=== PATIENT | female | born 2000 ===

== ENCOUNTER 2020-04-13 02:56 | Emergency (ER) | payer MEDICAID ==
[2020-04-13 08:21] LABS: Basophils % (Auto) 0.2 % (0.0-1.8); Hematocrit 43.2 % (30.3-42.9); Lymphocytes # (Auto) 1.4 K/mm3 (1.2-5.4); Mean Corpuscular HGB Conc 35 % (30-34); Mean Corpuscular Volume 84 fl (79-97); Monocytes # (Auto) 0.7 K/mm3 (0.0-0.8); Monocytes % (Auto) 4.9 % (0.0-7.3); Platelet Count 350 K/mm3 (140-440); Red Blood Count 5.16 M/mm3 (3.65-5.03); Red Cell Distribution Width 13.9 % (13.2-15.2)
[2020-04-13] MEDS ORDERED: SODIUM CHLORIDE 0.9% 1000 ML 1,000 ML IV ONE ×2 (08:31)
[2020-04-13] MEDS ORDERED: ONDANSETRON 4 MG/2 ML INJ IV ONE (08:31)
[2020-04-13] MEDS ORDERED: FAMOTIDINE 20 MG/2 ML INJ IV ONE (08:31)
[2020-04-13 09:02] LABS: Alanine Aminotransferase 38 units/L (7-56); Albumin 4.5 g/dL (3.9-5); Blood Urea Nitrogen 9 mg/dL (7-17); Hemolysis Index 0
[2020-04-13 09:19] LABS: BUN/Creatinine Ratio 18
[2020-04-13 11:54] LABS: Bacteria,Urine 1+ /HPF (Negative); Bilirubin,Urine SM (Negative); Blood,Urine NEG (Negative); Color,Urine Amber (Yellow); Mucus,Urine 3+ /HPF
[2020-04-13 11:56] LABS: Protein,Urine >500 mg/dL (Negative)
[2020-04-13 12:02] LABS: Ictotest,Urine Positive (Negative)
--- NOTE | 2020-04-13 12:33 | Emergency Department Report ---
ED Female HPI - General Chief complaint: Nausea/Vomiting/Diarrhea Stated complaint: VOMITING BLOOD Time Seen by Provider: 04/13/20 08:17 Source: patient, EMS Mode of arrival: Ambulatory Limitations: No Limitations - History of Present Illness Initial comments: cc: VOMITING HPI: This is a 19 yo female who is currently 11 weeks 3 days who presents with poor appetite and vomiting. She has had vomiting for 3 weeks. She now has small blood clots in her emesis. Poor appetite for one month. Patient just recently discovered that she is . She was evaluated a a local health clinic. While sitting in waiting room, she developed stomach discomfort. Odd dull generalized pain. No vaginal bleeding or discharge. CRISTAL 10/30/20 Complaint: other (abdominal pain, vomiting) -: hour(s) (several hours abdominal pain) Location: other (diffuse) Severity: mild Quality: dull Consistency: now resolved Worsens with: none Are you Now?: Yes - Related Data : 2 Para: 1 Previous Rx's Medication Instructions Recorded Last Taken Type Promethazine [Phenergan SUPPOS] 25 mg SC Q6HR PRN #20 supp.rect 04/13/20 Unknown Rx Promethazine [Phenergan] 25 mg PO Q6HR PRN #20 tab 04/13/20 Unknown Rx Allergies Allergy/AdvReac Type Severity Reaction Status Date / Time No Known Allergies Allergy Unverified 04/13/20 05:19 ED Review of Systems ROS: Stated complaint: VOMITING BLOOD Other details as noted in HPI Comment: All other systems reviewed and negative Constitutional: denies: fever, malaise Respiratory: denies: cough, shortness of breath Gastrointestinal: abdominal pain, hematemesis. denies: nausea, vomiting ED Past Medical Hx - Past Medical History Previous Medical History?: No - Surgical History Past Surgical History?: No - Social History Smoking Status: Never Smoker Substance Use Type: None - Medications Home Medications: Home Medications Medication Instructions Recorded Confirmed Last Taken Type Promethazine [Phenergan SUPPOS] 25 mg SC Q6HR PRN #20 supp.rect 04/13/20 Unknown Rx Promethazine [Phenergan] 25 mg PO Q6HR PRN #20 tab 04/13/20 Unknown Rx ED Physical Exam - General Limitations: No Limitations General appearance: alert, in no apparent distress - Head Head exam: Present: atraumatic, normocephalic - Eye Eye exam: Present: normal appearance - ENT ENT exam: Present: mucous membranes moist - Neck Neck exam: Present: normal inspection, full ROM - Respiratory Respiratory exam: Present: normal lung sounds bilaterally. Absent: respiratory distress, wheezes, rales, rhonchi, stridor - Cardiovascular Cardiovascular Exam: Present: regular rate, normal rhythm, normal heart sounds. Absent: systolic murmur, diastolic murmur, rubs, gallop - GI/Abdominal GI/Abdominal exam: Present: soft, normal bowel sounds. Absent: distended, tend erness, guarding, rebound - Extremities Exam Extremities exam: Present: normal inspection - Neurological Exam Neurological exam: Present: alert, oriented X3, normal gait - Psychiatric Psychiatric exam: Present: normal affect, normal mood - Skin Skin exam: Present: warm, dry, intact, normal color. Absent: rash ED Course Vital Signs 04/13/20 04/13/20 04/13/20 04:03 07:34 12:41 Temperature 98.3 F 97.6 F Pulse Rate 111 H 115 H 71 Respiratory 18 16 16 Rate Blood Pressure 130/84 Blood Pressure 125/77 118/64 [Right] O2 Sat by Pulse 97 98 100 Oximetry ED Medical Decision Making - Lab Data Result diagrams: 04/13/20 07:40 04/13/20 07:40 Laboratory Results - last 24 hr 04/13/20 04/13/20 04/13/20 07:40 07:40 07:40 WBC 13.7 H RBC 5.16 H Hgb 15.0 H Hct 43.2 H MCV 84 MCH 29 MCHC 35 H RDW 13.9 Plt Count 350 Lymph % (Auto) 10.0 L [place] % (Auto) 4.9 Eos % (Auto) 0.0 Baso % (Auto) 0.2 Lymph # (Auto) 1.4 [place] # (Auto) 0.7 Eos # (Auto) 0.0 Baso # (Auto) 0.0 Seg Neutrophils % 84.9 H Seg Neutrophils # 11.6 H Sodium 137 Potassium 3.0 L Chloride 99.2 Carbon Dioxide 22 Anion Gap 19 BUN 9 Creatinine 0.5 L Estimated GFR > 60 BUN/Creatinine Ratio 18 Glucose 127 H Calcium 10.0 Total Bilirubin 0.60 AST 41 H ALT 38 Alkaline Phosphatase 135 H Total Protein 8.7 H Albumin 4.5 Albumin/Globulin Ratio 1.1 HCG, Qual Positive Urine Color Urine Turbidity Urine pH Ur Specific [place] Urine Protein Urine Glucose (UA) Urine Ketones Urine Blood Urine Nitrite Urine Bilirubin Urine Ictotest Urine Urobilinogen Ur Leukocyte Esterase Urine WBC (Auto) Urine RBC (Auto) U Epithel Cells (Auto) Urine Bacteria (Auto) Urine Mucus 04/13/20 11:35 WBC RBC Hgb Hct MCV MCH MCHC RDW Plt Count Lymph % (Auto) [place] % (Auto) Eos % (Auto) Baso % (Auto) Lymph # (Auto) [place] # (Auto) Eos # (Auto) Baso # (Auto) Seg Neutrophils % Seg Neutrophils # Sodium Potassium Chloride Carbon Dioxide Anion Gap BUN Creatinine Estimated GFR BUN/Creatinine Ratio Glucose Calcium Total Bilirubin AST ALT Alkaline Phosphatase Total Protein Albumin Albumin/Globulin Ratio HCG, Qual Urine Color [place] Urine Turbidity Clear Urine pH 6.0 Ur Specific [place] 1.024 Urine Protein >500 Urine Glucose (UA) Neg Urine Ketones 80 Urine Blood Neg Urine Nitrite Neg Urine Bilirubin Sm Urine Ictotest Positive Urine Urobilinogen 4.0 Ur Leukocyte Esterase Mod Urine WBC (Auto) 22.0 H Urine RBC (Auto) 5.0 U Epithel Cells (Auto) 4.0 Urine Bacteria (Auto) 1+ Urine Mucus 3+ - Radiology Data Radiology results: report reviewed, image reviewed Viable IUP, heart activity 156 bpm - Medical Decision Making 1. Hyperemesis gravidarum: Patient does have ketones in urine. Patient also has hypokalemia. Patient received 2 L IV fluid normal saline as well as IV antiemetic. Patient tolerated multiple cups of liquid in the emergency department. 2. Abdominal pain : No tenderness to indicate acute inflammatory process such as acute cystitis cholecystitis or appendicitis. Ultrasound confirmed IUP viable with cardiac activity 3. Contaminated urine sample. Considering patient's hyperemesis did not feel that the benefit of antibiotic treatment potential UTI considering likely conta mination would be prudent with patient's current presentation. Critical care attestation.: If time is entered above; I have spent that time in minutes in the direct care of this critically ill patient, excluding procedure time. ED Disposition Clinical Impression: Hyperemesis gravidarum, Dehydration, Abdominal pain affecting , antepartum Disposition: - TO HOME OR SELFCARE Is pt being admited?: No Does the pt Need Aspirin: No Condition: Stable Instructions: Hyperemesis Gravidarum, Morning Sickness, [id number], Abdominal Pain During Prescriptions: Promethazine [Phenergan] 25 mg PO Q6HR PRN #20 tab PRN Reason: Nausea Promethazine [Phenergan SUPPOS] 25 mg SC Q6HR PRN #20 supp.rect PRN Reason: Nausea Referrals: GIORGIO DUCKWORTH MD [Staff Physician] - 3-5 Days Forms: Accompanied Note
[2020-04-13 12:42] VITALS: BP 118/64
--- NOTE | 2020-04-13 13:59 | Ultrasound Report ---
US OB <= 14 weeks fetus INDICATION / CLINICAL INFORMATION: PELVIC PAIN. COMPARISON: None available. FINDINGS: Single, viable intrauterine . heart rate 158. [place]-rump length measures 45 mm, corresponding to a gestational age of 11 weeks 2 days. Left ovary is normal. Right ovary contains a 1.5 cm cyst. No free fluid. IMPRESSION: 1. Single, viable 11 week 2 day intrauterine . Signer Name: Harrison Siddiqui MD Signed: 04/13/2020 1:54 PM Workstation Name: [id number]
== END 2020-04-13 12:49 | disposition home or self-care (01) ==
LOC: ED 02:56
DX: O26.899 Other specified pregnancy related conditions, unspecified trimester (principal); O21.0 Mild hyperemesis gravidarum; O26.891 Other specified pregnancy related conditions, first trimester; E86.0 Dehydration; Z79.899 Other long term (current) drug therapy; Z3A.11 11 weeks gestation of pregnancy
CPT/HCPCS: 36415; 76801; 80053; 81001; 84703; 85025; 87086; 96361; 96374; 96375; 99284; J2405; J7030

== ENCOUNTER 2020-10-28 00:11 | Inpatient (IN) | payer MEDICAID ==
--- NOTE | 2020-10-28 00:22 | Emergency Department Report ---
ED HPI - General Chief complaint: OB/Uterine Contractions Stated complaint: OB Time Seen by Provider: 10/28/20 00:11 Source: patient Mode of arrival: Wheelchair Limitations: No Limitations - History of Present Illness Initial comments: Patient is a 20-year-old female that presents emergency room for contractions and eminent delivery. Patient was being transported from ER triage over to mother-baby when the baby spontaneously came out. Mother holding the baby in her arms. Mother having profuse vaginal bleeding. Mother states that her contractions have stopped. Patient denies recent travel. Patient denies recent international travel. Patient denies exposure to the novel coronavirus. Patient denies sick contacts. Patient denies fever and chills. Patient denies cough. Patient denies diarrhea. Patient denies coming in contact with anybody with symptoms of the novel coronavirus. Obstetrical History Expected Date of Delivery: 10/30/20 Actual Gestation: 39 Week(s) 5 Day(s) : 2 Para: 1 Hx # Term Pregnancies: 1 Number of Living Children: 1 Patient is care with Dr[address] Pastor. Complaint: "contractions" -: Sudden Severity: severe Quality: other (Contractions) Consistency: intermittent (Contractions) Improves with: rest Worsens with: movement Vaginal bleeding: heavy :: Yes OB History - Current : no complications OB History - Previous Pregnancies: no complications Pre-moises care: followed by OB - Related Data Previous Rx's Medication Instructions Recorded Last Taken Type Promethazine [Phenergan SUPPOS] 25 mg OK Q6HR PRN #20 supp.rect 04/13/20 Unknown Rx Promethazine [Phenergan] 25 mg PO Q6HR PRN #20 tab 04/13/20 Unknown Rx Allergies Allergy/AdvReac Type Severity Reaction Status Date / Time No Known Allergies Allergy Unverified 04/13/20 05:19 ED Review of Systems ROS: Stated complaint: OB Other details as noted in HPI Comment: All other systems reviewed and negative ED Past Medical Hx - Past Medical History Previous Medical History?: No - Surgical History Past Surgical History?: No - Family History Family history: no significant - Social History Smoking Status: Never Smoker Substance Use Type: None - Medications Home Medications: Home Medications Medication Instructions Recorded Confirmed Last Taken Type Promethazine [Phenergan SUPPOS] 25 mg OK Q6HR PRN #20 supp.rect 04/13/20 Unknown Rx Promethazine [Phenergan] 25 mg PO Q6HR PRN #20 tab 04/13/20 Unknown Rx ED Physical Exam - General Limitations: No Limitations General appearance: alert, in no apparent distress - Head Head exam: Present: atraumatic, normocephalic - Eye Eye exam: Present: normal appearance - ENT ENT exam: Present: mucous membranes moist - Neck Neck exam: Present: normal inspection - Respiratory Respiratory exam: Present: normal lung sounds bilaterally. Absent: respiratory distress - Cardiovascular Cardiovascular Exam: Present: regular rate, normal rhythm. Absent: systolic murmur, diastolic murmur, rubs, gallop - GI/Abdominal GI/Abdominal exam: Present: soft, distended (Gravid abdomen) - Speculum exam: Present: vaginal bleeding - Extremities Exam Extremities exam: Present: normal inspection - Back Exam Back exam: Present: normal inspection - Neurological Exam Neurological exam: Present: alert - Skin Skin exam: Present: warm, dry, intact, normal color. Absent: rash ED Course - Reevaluation(s) Reevaluation #1: Code stroke has been called. The baby is already delivered. Patient and a wheelchair and transfer to our [place]. Cord clamp placed. Fundal massage being done. Placenta has been delivered. Placenta and afterbirth placed into specimen tray. Baby handed off to the NICU team. Baby placed in warmer. See procedure note. 10/28/20 00:06 Patient transferred to mother-baby. [employer] SKY SHOW TECHNICIAN and NICU team with mother and baby. 10/28/20 00:20 - Vaginal Delivery Consent Obtained: emergent situation Time Out Performed: Yes Indication: precipitous vaginal deliv Presentation: other (Baby delivered.) Delivered: manually - HR at 1 Minute: >100 (2) - RR at 1 Minute: strong cry (2) - Color at 1 Minute: Keeler (2) - Muscle Tone at 1 Minute: active motion (2) - Reflex Irritability at 1 Minute: grimace (1) Score: 9 Cord Blood Obtained: No Cord Clamped: Yes Placenta Delivered: yes Patient Tolerated Procedure: well, no complications Complications: none Care Transferred To:: NICU and [employer] SHOW TECHNICIAN team. ED Medical Decision Making - Medical Decision Making Patient is a 20-year-old female that presents emergency room with complaints of contractions and evident delivery. Patient delivered a baby on the way to mother-baby and the patient was transported to room 8. The cord snapped and the cord was clamped. Patient delivered the placenta without difficulty. Fundal massage done. Patient transferred to the mother-baby. The NICU team was at the bedside and the care was handed off to the NICU team. Patient placed on warmer baby warmer and patient's improved. See procedure notes. Critical care time documented due to the multiple reassessments, prolonged time at the bedside and delivery of baby and placenta. - Differential Diagnosis Eminent delivery. Vaginal bleeding, Critical Care Time: Yes Critical care time in (mins) excluding proc time.: 35 Critical care attestation.: If time is entered above; I have spent that time in minutes in the direct care of this critically ill patient, excluding procedure time. Critical Care Time: 35 minutes ED Disposition Clinical Impression: Vaginal delivery, Precipitous delivery, Active labor Qualifiers: Weeks of gestation: unspecified Qualified Code(s): Z34.90 - Encounter for supervision of normal , unspecified, unspecified trimester Disposition: OP ADMIT IP TO THIS HOSP Is pt being admited?: No Does the pt Need Aspirin: No Condition: Critical Time of Disposition: 00:30
[2020-10-28] MEDS ORDERED: SODIUM CHLORIDE 0.9% 1000 ML 1,000 ML IV ONE (00:32)
[2020-10-28] MEDS ORDERED: OXYTOCIN 10 UNIT/1 ML INJ ONE (00:34)
[2020-10-28] MEDS ORDERED: OXYTOCIN DRIP 30,000 MILLIUNITS/500 ML BAG IV ONE (00:35)
[2020-10-28] MEDS ORDERED: fentaNYL 100 MCG/2 ML INJ ONE (00:39)
[2020-10-28] MEDS ORDERED: OXYTOCIN 10 UNIT/1 ML INJ IM ONE (00:58)
[2020-10-28] MEDS ORDERED: ePHEDrine SULFATE 50 MG/1 ML INJ IV PRN (00:58)
[2020-10-28] MEDS ORDERED: TERBUTALINE 1 MG/1 ML INJ SUB-Q PRN (00:58)
[2020-10-28] MEDS ORDERED: MINERAL OIL 30 ML ORAL LIQD PO PRN (00:58)
[2020-10-28] MEDS ORDERED: OXYTOCIN DRIP 30 UNITS/500 ML BAG IV SCH ×3 (01:00)
[2020-10-28] MEDS ORDERED: LACTATED RINGERS 1,000 ML IV SCH (01:00)
[2020-10-28] MEDS ORDERED: ONDANSETRON 4 MG/2 ML INJ IV PRN (01:04)
[2020-10-28] MEDS ORDERED: LANOLIN/ZINC/DIMETHICONE (LANSINOH) 7 GM TP PRN (01:04)
[2020-10-28] MEDS ORDERED: PROMETHAZINE 25 MG RECT SUPP PR PRN (01:04)
[2020-10-28] MEDS ORDERED: PROMETHAZINE 25 MG TAB PO PRN (01:04)
[2020-10-28] MEDS ORDERED: MAGNESIUM HYDROXIDE (MOM) ORAL LIQD UDC PO PRN (01:04)
[2020-10-28] MEDS ORDERED: WITCH HAZEL/ GLYCERIN PAD TP PRN (01:04)
[2020-10-28] MEDS ORDERED: diphenhydrAMINE 25 MG CAP PO PRN (01:04)
--- NOTE | 2020-10-28 01:15 | Event Note ---
Date: 10/28/20 Called to rm to asses pt post precipitous del in ER. Fundus boggy @U2 with constant trickle of bright red blood. Fundus became firm and homeostasis was maintained with fundal massage and 10U IV Pitocin. An exploration of tears revealed none. Mom and baby was left in stable condition with nurses.
--- NOTE | 2020-10-28 01:22 | History and Physical Report ---
History of Present Illness Date of examination: 10/28/20 Date of admission: 10/28/20 00:55 Chief complaint: presented to ER with c/o uc History of present illness: 20 y/o AA female presented to [facility] ER with c/o strong UC. Pt had a precipitous delivery in the ER. Pt states she started her pnc @ approx 20+ wks at [facility] [place] office. She states she had an uneventful preg and denies any med/surg/social hx. After delivery, mom and baby was taken to L&D for an asses. Past History Past Medical History: no pertinent history Past Surgical History: no surgical history Family/Genetic History: diabetes Social history: single, full code - Obstetrical History Expected Date of Delivery: 10/30/20 Actual Gestation: 39 Week(s) 5 Day(s) : 2 Para: 1 Hx # Term Pregnancies: 1 Number of Living Children: 1 Medications and Allergies Allergies Allergy/AdvReac Type Severity Reaction Status Date / Time No Known Allergies Allergy Unverified 04/13/20 05:19 Home Medications Medication Instructions Recorded Confirmed Last Taken Type Promethazine [Phenergan SUPPOS] 25 mg DC Q6HR PRN #20 supp.rect 04/13/20 Unknown Rx Promethazine [Phenergan] 25 mg PO Q6HR PRN #20 tab 04/13/20 Unknown Rx Active Meds: Active Medications Bisacodyl (Bisacodyl 10 Mg Rect Supp) 10 mg DC BID PRN PRN Reason: Constipation Diphenhydramine HCl (Diphenhydramine 25 Mg Cap) 25 mg PO Q6H PRN PRN Reason: Itching Ephedrine Sulfate (Ephedrine Sulfate 50 Mg/1 Ml Inj) 10 mg IV Q2M PRN PRN Reason: Hypotension Fentanyl (Fentanyl 100 Mcg/2 Ml Inj) 100 mcg IV ONCE ONE Stop: 10/28/20 01:58 Sodium Chloride (Nacl 0.9% 1000 Ml) 1,000 mls @ 999 mls/hr IV BOLUS ONE Stop: 10/28/20 01:32 Last Admin: 10/28/20 00:13 Dose: 999 mls/hr Documented by: Oxytocin/Sodium Chloride (Pitocin/Ns 30 Unit/500ml) 30 units in 500 mls @ 1 mls/hr IV TITR BOUCHRA; Protocol Oxytocin/Sodium Chloride (Pitocin/Ns 30 Unit/500ml) 30 units in 500 mls @ 2 mls/hr IV TITR BOUCHRA; Protocol Lactated Ringer's (Lactated Ringers) 1,000 mls @ 125 mls/hr IV DIRECT BOUCHRA Oxytocin/Sodium Chloride (Pitocin/Ns 30 Unit/500ml) 30 units in 500 mls @ 40 mls/hr IV TITR BOUCHRA; Protocol Ibuprofen (Ibuprofen 600 Mg Tab) 600 mg PO Q6HR BOUCHRA Lidocaine (Lidocaine (2%) 20 Mg/1 Ml Vial 20 Ml Mdv) 20 ml INFILTRATI ONCE ONE Stop: 10/28/20 00:59 Magnesium Hydroxide (Magnesium Hydroxide (Mom) Oral Liqd Udc) 30 ml PO HS PRN PRN Reason: Constipation Mineral Oil (Mineral Oil 30 Ml Oral Liqd) 30 ml PO QHS PRN PRN Reason: Constipation Multi-Ingredient Ointment (Lanolin/Zinc/Dimethicone (Lansinoh) 7 Gm) 1 applic TP PRN PRN PRN Reason: Sore Nipples Multivitamins/Iron/Calcium ( Wby60-Os Fumarate-Folic Acid Vit Tab) 1 each PO QDAY BOUCHRA Ondansetron HCl (Ondansetron 4 Mg/2 Ml Inj) 4 mg IV Q8H PRN PRN Reason: Nausea And Vomiting Oxytocin (Oxytocin 10 Unit/1 Ml Inj) 10 unit IM ONCE ONE Stop: 10/28/20 00:59 Promethazine HCl (Promethazine 25 Mg Rect Supp) 25 mg DC Q6H PRN PRN Reason: Nausea And Vomiting Promethazine HCl (Promethazine 25 Mg Tab) 25 mg PO Q6H PRN PRN Reason: Nausea And Vomiting Sodium Chloride (Sodium Chloride 0.9% 10 Ml Flush Syringe) 10 ml IV PRN NR Stop: 10/29/20 01:59 Terbutaline Sulfate (Terbutaline 1 Mg/1 Ml Inj) 0.25 mg SUB-Q ONCE PRN PRN Reason: Hyperstimulation/Hypertonicity Witch Rachel/Glycerin (Witch Rachel/ Glycerin Pad) 1 each TP PRN PRN PRN Reason: Hemorrhoid/cleansing/soothing Review of Systems All systems: negative Eyes: deferred Ears, nose, mouth and throat: deferred Breasts: normal Genitourinary: normal appearance Rectal Exam: deferred - Vital Signs Vital signs: Vital Signs Pulse Resp BP Pulse Ox 94 H 26 H 141/56 100 10/28/20 00:12 10/28/20 00:12 10/28/20 00:12 10/28/20 00:12 Temp Pulse Resp BP Pulse Ox 93 H 26 H 127/58 98 10/28/20 01:15 10/28/20 00:12 10/28/20 01:15 10/28/20 01:15 - Physical Exam Breasts: Positive: normal Abdomen: Positive: normal appearance, soft, normal bowel sounds Genitourinary (Female): Positive: normal external genitalia, normal perenium Vulva: both: normal Vagina: Positive: normal moisture Uterus: Positive: enlarged, normal contour Adnexa: both: normal Anus/Rectum: Positive: normal perianal skin Extremities: Positive: normal Results All other labs normal. Assessment and Plan A: S/P precipitous vag del GBS unknown P: Admit to L&D Routine pp care Notify NICU of GBS status Monitor x 1 hr then transfer to PP
[2020-10-28] MEDS ORDERED: fentaNYL 100 MCG/2 ML INJ IV ONE (01:57)
[2020-10-28] MEDS ORDERED: LIDOCAINE (2%) 20 MG/1 ML VIAL 20 ML MDV INFILTRATI ONE (01:58)
[2020-10-28 02:21] LABS: Hematocrit 25.2 % (30.3-42.9); Hemoglobin 8.8 gm/dl (10.1-14.3); Mean Corpuscular HGB Conc 35 % (30-34); Mean Corpuscular Volume 88 fl (79-97); Platelet Count 248 K/mm3 (140-440); Red Blood Count 2.88 M/mm3 (3.65-5.03); Red Cell Distribution Width 14.3 % (13.2-15.2)
[2020-10-28 03:06] LABS: Amphetamine Screen,Urine Negative; Benzodiazepines Screen,Urine Negative; Cannabinoid Screen,Urine Negative; Cocaine Screen,Urine Negative; Methadone Screen,Urine Negative; Opiate Screen,Urine Negative
[2020-10-28] MEDS ORDERED: IRON DEXTRAN COMPLEX 100 MG/2 ML INJ IM ONE (04:30)
[2020-10-28] MEDS: IBUPROFEN 600 MG TAB PO SCH ×4 (05:38→17:25)
[2020-10-28] MEDS: PRENATAL VIT27-FE FUMARATE-FOLIC ACID VIT TAB PO SCH (09:24)
[2020-10-28] MEDS: FERROUS SULFATE 325 MG TAB PO SCH ×2 (09:24→21:40)
[2020-10-28 12:34] LABS: Bilirubin,Urine NEG (Negative); Blood,Urine LG (Negative); Color,Urine Yellow (Yellow); Mucus,Urine 3+ /HPF
[2020-10-28 12:37] LABS: RBC,Urine > 182.0 /HPF (0.0-6.0)
[2020-10-28 13:36] LABS: Hematocrit 23.4 % (30.3-42.9); Hemoglobin 7.9 gm/dl (10.1-14.3)
--- NOTE | 2020-10-28 18:51 | Event Note ---
Date: 10/28/20 WBC elevated. Spoke with Dr. Galan who recommended triples. Ordered Ampicillin, Gentamicin, and Clindamycin due to elevated WBC. Informed pt. re: plan of care.
[2020-10-28 19:35] LABS: Albumin 3.3 g/dL (3.9-5); Blood Urea Nitrogen 5 mg/dL (7-17); Calcium 8.4 mg/dL (8.4-10.2); Hemolysis Index 0
[2020-10-28 19:36] LABS: Alanine Aminotransferase < 5 units/L (7-56); BUN/Creatinine Ratio 13
[2020-10-28] MEDS ORDERED: GENTAMICIN 100 MG in SODIUM CHLORIDE 0.9% 100 ML IV SCH (20:00)
[2020-10-28] MEDS: AMPICILLIN/NS 2 GM/100 ML 2 GM/100 ML BAG IV SCH (21:01)
--- NOTE | 2020-10-28 21:08 | Event Note ---
Date: 10/28/20 Notified nurse to give patient juice and snack as blood glucose is low. Advised nurse to recheck blood sugar.
[2020-10-28] MEDS: GENTAMICIN/NS 100 MG/100 ML 100 MG/100 ML BAG IV SCH (22:17)
[2020-10-29] MEDS: AMPICILLIN/NS 2 GM/100 ML 2 GM/100 ML BAG IV SCH ×4 (01:51→22:54)
--- NOTE | 2020-10-29 06:04 | Progress Note ---
Assessment and Plan A: day 1 S/P . Leukocytosis. Anemia. P: Repeat CBC thia morning. Iron supplementation. Continue antibiotics. Urine culture pending. Subjective - Subjective Date of service: 10/29/20 Principal diagnosis: day 1 S/P Interval history: Leukocytosis; on triple antibiotics. Repeat CBC to be done today. Patient reports: appetite normal, voiding normally, pain well controlled, flatus, ambulating normally, no dizzy ambulation, no nauseated : doing well Objective - Vital Signs Latest vital signs: Vital Signs Temp Pulse Resp BP BP Pulse Ox 10/29/20 00:00 98.6 F 78 20 122/63 99 10/28/20 17:38 97.6 F 90 18 108/42 97 10/28/20 12:34 98.2 F 89 18 99/40 98 10/28/20 08:37 98.2 F 91 H 18 105/52 98 Intake and Output 10/28/20 10/28/20 10/29/20 15:59 23:59 07:59 Intake Total 400 150 Output Total 400 Balance 0 150 Intake: IV 150 AMPICILLIN/NS 2 GM/100 ML 100 2 gm In 100 ml @ 100 mls /hr IV Q6H BOUCHRA Rx#: [id number] CLEOCIN 900 MG/50 mL 900 50 mg In 50 ml @ 100 mls/hr IV Q8HR BOUCHRA Rx#:[id number] Oral 300 Intake, Free Water 100 Output: Urine 400 Void 400 Other: Total, Intake Amount 300 Total, Output Amount 400 # Voids Void 1 1 - Exam Cardiovascular: Present: Regular rate Lungs: Present: Clear to auscultation Abdomen: Present: normal appearance, soft, normal bowel sounds. Absent: distention, tenderness, guarding, rigidity Uterus: Present: normal, firm, fundal height below umbilicus. Absent: bogginess, tenderness Extremities: Present: normal. Absent: tenderness, edema - Labs Labs: Abnormal lab results 10/28/20 10/28/20 10/28/20 Range/Units 11:41 13:00 18:36 Hgb 7.9 L (10.1-14.3) gm/dl Hct 23.4 L (30.3-42.9) % Carbon Dioxide 20 L (22-30) mmol/L BUN 5 L (7-17) mg/dL Creatinine 0.4 L (0.6-1.2) mg/dL Glucose 41 L (65-100) mg/dL POC Glucose (70-105) mg/dL ALT < 5 L (7-56) units/L Alkaline Phosphatase 179 H (35-129) units/L Total Protein 5.5 L (6.3-8.2) g/dL Albumin 3.3 L (3.9-5) g/dL Urine WBC (Auto) 24.0 H (0.0-6.0) /HPF 10/28/20 Range/Units 21:38 Hgb (10.1-14.3) gm/dl Hct (30.3-42.9) % Carbon Dioxide (22-30) mmol/L BUN (7-17) mg/dL Creatinine (0.6-1.2) mg/dL Glucose (65-100) mg/dL POC Glucose 122 H (70-105) mg/dL ALT (7-56) units/L Alkaline Phosphatase (35-129) units/L Total Protein (6.3-8.2) g/dL Albumin (3.9-5) g/dL Urine WBC (Auto) (0.0-6.0) /HPF
[2020-10-29] MEDS: GENTAMICIN/NS 100 MG/100 ML 100 MG/100 ML BAG IV SCH ×2 (06:19→16:16)
[2020-10-29 10:08] LABS: Basophils % (Auto) 0.4 % (0.0-1.8); Eosinophils # (Auto) 0.1 K/mm3 (0.0-0.4); Hematocrit 23.5 % (30.3-42.9); Hemoglobin 8.1 gm/dl (10.1-14.3); Lymphocytes # (Auto) 2.6 K/mm3 (1.2-5.4); Lymphocytes % (Auto) 22.4 % (13.4-35.0); Mean Corpuscular HGB Conc 34 % (30-34); Mean Corpuscular Volume 89 fl (79-97); Monocytes # (Auto) 0.8 K/mm3 (0.0-0.8); Monocytes % (Auto) 7.2 % (0.0-7.3); Platelet Count 230 K/mm3 (140-440); Red Blood Count 2.64 M/mm3 (3.65-5.03); Red Cell Distribution Width 14.5 % (13.2-15.2)
[2020-10-29] MEDS: IBUPROFEN 600 MG TAB PO SCH ×2 (10:38→23:19)
[2020-10-29] MEDS: FERROUS SULFATE 325 MG TAB PO SCH ×2 (10:38→22:53)
[2020-10-29] MEDS: PRENATAL VIT27-FE FUMARATE-FOLIC ACID VIT TAB PO SCH (10:38)
[2020-10-29] MEDS ORDERED: SODIUM CHLORIDE 0.9% 500 ML 500 ML IV SCH (23:00)
[2020-10-30] MEDS: GENTAMICIN/NS 100 MG/100 ML 100 MG/100 ML BAG IV SCH ×2 (00:22→12:22)
[2020-10-30] MEDS: AMPICILLIN/NS 2 GM/100 ML 2 GM/100 ML BAG IV SCH ×2 (04:03→10:34)
[2020-10-30] MEDS: IBUPROFEN 600 MG TAB PO SCH ×2 (05:35→12:22)
[2020-10-30] MEDS: FERROUS SULFATE 325 MG TAB PO SCH (10:34)
[2020-10-30] MEDS: PRENATAL VIT27-FE FUMARATE-FOLIC ACID VIT TAB PO SCH (10:34)
[2020-10-30 14:25] VITALS: BP 106/50
--- NOTE | 2020-10-30 14:46 | Progress Note ---
Assessment and Plan A: day 2 S/P . Leukocytosis; has been receiving IV antibiotics. Anemia. P: Iron supplementation for anemia. Will consult with re: timing of discharge. Subjective - Subjective Date of service: 10/30/20 Principal diagnosis: day 2 S/P Interval history: Patient desires discharge home today. Patient reports: appetite normal, voiding normally, pain well controlled, f latus, ambulating normally, no dizzy ambulation, no nauseated : doing well Objective - Vital Signs Latest vital signs: Vital Signs Temp Pulse Resp BP BP Pulse Ox 10/30/20 14:19 98.2 F 75 18 106/50 98 10/30/20 08:30 98.4 F 74 16 99/60 99 10/30/20 00:00 98.6 F 78 18 114/78 10/29/20 16:11 97.8 F 66 20 101/57 99 Intake and Output 10/29/20 10/30/20 10/30/20 23:59 07:59 15:59 Intake Total 850 650 Balance 850 650 Intake: IV 350 250 AMPICILLIN/NS 2 GM/100 ML 200 100 2 gm In 100 ml @ 100 mls /hr IV Q6H BOUCHRA Rx#: [id number] CLEOCIN 900 MG/50 mL 900 50 50 mg In 50 ml @ 100 mls/hr IV Q8HR BOUCHRA Rx#:[id number] GENTAMICIN/NS 100 MG/100 100 100 ML 100 mg In 100 ml @ 200 mls/hr IV Q8HR BOUCHRA Rx#: [id number] Oral 200 400 Intake, Free Water 300 Other: Total, Intake Amount 200 200 # Voids Void 1 1 - Exam Cardiovascular: Present: Regular rate Lungs: Present: Clear to auscultation Abdomen: Present: normal appearance, soft, normal bowel sounds. Absent: distention, tenderness, guarding, rigidity Uterus: Present: normal, firm, other. Absent: bogginess, tenderness Extremities: Present: normal. Absent: tenderness, edema
--- NOTE | 2020-10-30 15:12 | Discharge Summary ---
Providers - Providers Date of Admission: 10/28/20 00:55 Date of discharge: 10/30/20 Attending physician: ZACH SAUCEDO MD 10/30/20 07:17 Consult to Case Management [CONS] Routine Services Needed at Discharge: Hydraulic And Plumbing Installer Notified:: ext [phone] Additional Physician Instructions: limited care. Primary care physician: ZACH SAUCEDO MD Hospitalization Reason for admission: active labor Delivery: Episiotomy: none Laceration: none Discharge diagnosis: IUP at term delivered baby: female Pertinent studies: Labs Hospital course: Stable hospital course. Condition at discharge: Good Disposition: DC-01 TO HOME OR SELFCARE - Discharge Diagnoses (1) Term delivered Status: Acute Plan - Provider Discharge Summary Activity: routine, no sex for 6 weeks, no heavy lifting 4 weeks, no strenuous exercise Diet: routine Instructions: routine Additional instructions: Continue taking your vitamin and iron supplements at home. Follow up at [facility] in 2-3 days. Call your doctor immediately for: * Fever > 100.5 * Heavy vaginal bleeding ( >1 pad per hour) * Severe persistent headache * Shortness of breath * Reddened, hot, painful area to leg or breast - Follow up plan Follow up: ZACH SAUCEDO MD [Primary Care Provider] - 48 Hours Forms: [facility] Discharge Summary
[2020-10-30] MEDS ORDERED: DEXTROSE 5% IV SCH (16:00)
[2020-10-30] MEDS ORDERED: WATER IV SCH (16:00)
[2020-10-30] MEDS ORDERED: CLINDAMYCIN IV SCH (16:00)
== END 2020-10-30 17:05 | disposition home or self-care (01) | DRG 775 ==
LOC: ED 00:11 → TRG 00:11 → EDSTATUS 00:50 → LD 00:55 → OB 04:00
PROC: 10E0XZZ Delivery of Products of Conception, External Approach (ICD-10-PCS; principal; 2020-10-28)
DX: O62.3 Precipitate labor (principal); D72.829 Elevated white blood cell count, unspecified; O99.03 Anemia complicating the puerperium; Z20.822 Contact with and (suspected) exposure to COVID-19; Z79.899 Other long term (current) drug therapy; Z83.3 Family history of diabetes mellitus; Z3A.39 39 weeks gestation of pregnancy; Z37.0 Single live birth; O99.13 Other diseases of the blood and blood-forming organs and certain disorders involving the immune mechanism complicating the puerperium
CPT/HCPCS: 36415; 80053; 80307; 81001; 82962; 83036; 85014; 85018; 85025; 85027; 86850; 86900; 86901; 87086; 99211; G0378; G0463; J0290; J1580; J1750; J2590; J3010; J7040; U0003